=== PATIENT | male | born 1930 | race Asian ===

== ENCOUNTER → 2016-05-05 | Outpatient (CLI) | payer MEDICARE, OTHER ==
[~2016-05-05] MED LIST: 3N1 COMMODE MC; AMLO-147 PO; ASPI-781 PO; BEN25 PO; CHOL100062 PO; CPM MC; DOCU-144 PO; DULR PR; ERGO500014 PO; EZET10TA3 PO; FOLI-49 PO; HYDR-3498 PO; NA P133E3 PR; SYN1 PO; TAMS0.4C2 PO; UDMOM PO; VALS40TA2 PO; WALK1EAC23 MC; [UNRECOGNIZED DRUG - CODE] PO
--- NOTE | 2016-05-05 11:07 | RADRPT ---
PROCEDURE: Left knee radiographs. CLINICAL INDICATION: Left knee pain. Postop. TECHNIQUE: Three views. Weight bearing. Frontal, lateral, and patellar view. COMPARISON: 01/27/2016. FINDINGS: There is no fracture or dislocation. Vascular calcifications are present consistent with atherosclerosis. 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 There is no lytic or blastic lesion. There is no joint effusion. IMPRESSION: 1. Satisfactory postoperative appearance of the left knee. 2. Atherosclerosis. RPTAT: QQ .William Beck MD, MD Date Time Electronically viewed and signed by .William Beck MD, MD on 05/05/2016 11:07 .R/
== END | disposition home or self-care (01) ==
LOC: HKI 10:34
PROVIDERS: ATTEND Orthopaedic Surgery
DX: Z47.1 Aftercare following joint replacement surgery (principal); Z96.652 Presence of left artificial knee joint
CPT/HCPCS: 73562; G0463

== ENCOUNTER → 2016-09-04 | Outpatient (CLI) | payer MEDICARE, OTHER ==
[~2016-09-04] MED LIST changes: +BISA10SU75 PR; -DULR PR
--- NOTE | 2016-09-04 16:43 | RADRPT ---
PROCEDURE: Left knee radiographs. CLINICAL INDICATION: Left knee pain. Postop. TECHNIQUE: Three views. Weight bearing. Frontal, lateral, and patellar view. COMPARISON: 05/05/2016. FINDINGS: There is no fracture or dislocation. Vascular calcifications are present consistent with atherosclerosis. 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 There is no lytic or blastic lesion. There is no joint effusion. IMPRESSION: 1. Atherosclerosis. 2. Otherwise satisfactory postoperative appearance of the left knee. RPTAT: QQ .William Beck MD, MD Date Time Electronically viewed and signed by .William Beck MD, MD on 09/04/2016 16:43 .R/
== END | disposition home or self-care (01) ==
LOC: HKI 09:51
PROVIDERS: ATTEND Orthopaedic Surgery
DX: Z47.89 Encounter for other orthopedic aftercare (principal); Z96.653 Presence of artificial knee joint, bilateral
CPT/HCPCS: 73562; G0463